=== PATIENT | female | born 1940 | race Caucasian/White ===

== ENCOUNTER 2018-08-16 05:15 | Observation (INO) | payer MEDICARE ==
[2018-08-16] VITALS (7 sets, daily range): BP systolic 98–128; BP diastolic 54–61
[~2018-08-16] VITALS: Ht 157.5 cm; Wt 52.2 kg
[~2018-08-16 05:15] MED LIST: ACETAMINOPHEN325 M1 PO; AMLODIPINE BESYL5 MG PO; AMOXICILLIN250 MG PO; ASA325 PO; ASCORBIC ACID500 MG PO; CELEBREX100 MG PO; CINNAMON500 MG PO; CLARITIN PO; DIOVAN40 MG PO; EVISTA60 MG PO; GABAPENTIN300 MG PO; GLUCOSAMINE &1 EACH PO; KRILL OIL PO; KRILL OIL500 MG PO; LEXAPRO10 MG PO; LISINOPRIL10 MG PO; METFORMIN HCL1000 MG PO; MONTELUKAST SOD10 MG PO; MULTI-VITAMIN1 EACH PO; RANITIDINE HCL150 MG PO; ROBITUSSIN PO; TAMIFLU PO; TYLENOL PO; ULTRAM 50MG50 MG PO; VALSARTAN PO; VITAMIN C WITH ZINC PO; VITAMIN D35000 UNIT PO; VITAMIN E400 UNI4 PO; Z.0.CELEBREX200 MG PO; Z.0.EVISTA60 MG PO; Z.0.VITAMIN C1000 MG PO; Z.1.METFORMIN HCL100 PO; [UNRECOGNIZED DRUG - OTHER] PO
[2018-08-16] MEDS ORDERED: DEXAMETHASONE SOD PHOS 10 MG/1 ML VIAL ONE (05:58)
[2018-08-16] MEDS ORDERED: CELECOXIB 200 MG CAP ONE (05:58)
[2018-08-16] MEDS ORDERED: GABAPENTIN 300 MG CAP ONE (05:58)
[2018-08-16] MEDS ORDERED: TRANEXAMIC ACID 1,000 MG/10 ML ML ONE (06:43)
[2018-08-16] MEDS ORDERED: BACITRACIN 50,000 UNIT VIAL ONE (06:43)
[2018-08-16] MEDS ORDERED: ROPIVACAINE 246.25 MG, EPINEPHRINE HCL 1:1000 0.5 MG, CLONIDINE HCL 0.08 MG, KETOROLAC ... INJ ONE ×5 (07:30)
[2018-08-16] MEDS ORDERED: CEFAZOLIN SOD 2 GM/D5W 50ML 50 ML IV ONE (07:31)
[2018-08-16] MEDS ORDERED: PROMETHAZINE HCL (IM) 25 MG/ML VIAL IM PRN (09:00)
[2018-08-16] MEDS ORDERED: ACETAMINOPHEN 650 MG SUPP PR PRN (09:00)
[2018-08-16] MEDS ORDERED: ONDANSETRON HCL INJ 2 MG/ML VIAL IV PRN (09:00)
[2018-08-16] MEDS ORDERED: DIPHENHYDRAMINE HCL INJ 50 MG/ML VIAL IM/IV PRN (09:00)
[2018-08-16] MEDS ORDERED: KETOROLAC TROMETHAMINE 30 MG/ML VIAL IV PRN (09:00)
[2018-08-16] MEDS ORDERED: HYDROCODONE/APAP 7.5MG-325MG 1 EA TAB PO PRN (09:00)
[2018-08-16] MEDS ORDERED: DOCUSATE SODIUM 100 MG CAP PO PRN (09:00)
[2018-08-16] MEDS ORDERED: HYDROCODONE/APAP 5MG-325MG TAB PO PRN (09:00)
[2018-08-16] MEDS ORDERED: CELECOXIB 100 MG CAP PO SCH (09:00)
[2018-08-16] MEDS ORDERED: FENTANYL CITRATE/PF 100MCG/2 ML INJ ONE ×2 (09:55→18:03)
--- NOTE | 2018-08-16 10:43 | Diagnostic Imaging Report ---
PROCEDURE: X-RAY RIGHT KNEE, ONE OR TWO VIEWS COMPARISON: None. INDICATIONS:POST OP RIGHT KNEE SX FINDINGS: See conclusion. CONCLUSION: Status post total right knee replacement with surrounding soft tissue swelling, air and colette consistent with recent surgery. No acute fractures. Duong Nichols D.O. Dictated by: Duong Nichols D.O. on 08/16/2018 at 10:51 Electronically approved by: Duong Nichols D.O. on 08/16/2018 at 10:51
[2018-08-16] MEDS: ACETAMINOPHEN 1000 MG/100 ML IV SCH ×2 (12:09→18:33)
[2018-08-16] MEDS ORDERED: CEFAZOLIN SOD 1 GM/D5W 50ML 50 ML IV SCH (14:00)
[2018-08-16] MEDS: CEFAZOLIN SOD 1 GM VIAL IV SCH ×2 (14:02→21:24)
--- NOTE | 2018-08-16 14:59 | Operative Report ---
DATE OF PROCEDURE: August 16, 2018 PEWTER FINISHER: Jason Carr PA-C The patient was brought to the operating room for induction of anesthesia. Throughout this case, my PA's assistance was necessary for retraction of soft tissue and positioning of the extremity. This allows for efficient and technically successful execution of the operation and is considered medically necessary. PREOPERATIVE DIAGNOSIS: Osteoarthritis, right knee. POSTOPERATIVE DIAGNOSIS: Osteoarthritis, right knee. PROCEDURE: Right total knee arthroplasty. INDICATIONS: The patient is an active 77-year-old woman who has end-stage arthritis of her right knee. She has failed conservative management and would like to proceed with right total knee replacement. The risks and benefits of the procedure have been discussed in detail. She states she understands and wishes to proceed. DESCRIPTION OF PROCEDURE: The patient was brought to the operating room and given a general anesthetic. She received a regional block, prophylactic antibiotics, and tranexamic acid in the holding area. Her right lower extremity was prepped and draped in a sterile manner. A preoperative time-out was performed. The extremity was exsanguinated and a proximal tourniquet was inflated to 300 mmHg. An anterior approach with a medial parapatellar arthrotomy was performed. Clear synovial fluid was removed from the joint. Soft tissue releases were performed to bring the knee up into flexion with the patella everted. She had diminish quadriceps definition and her tissue was quite thin. 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 Retractors were placed. An extramedullary cutting guide was used to resect the proximal tibia. The cut was referenced off the lateral compartment. A [employer] Person[employer] system was used throughout the case. The tibial baseplate was noted to be a size D. The central fin punch was impacted and attention was directed towards the distal femur. An intramedullary cutting guide was used to resect the distal femur in 5 degrees of valgus and external rotation referencing off of a combination of landmarks including [place] line, the epicondylar axis, and the posterior condyles. The femoral component was noted to be a size #5. The anterior and posterior cuts were made. Trial reductions were performed. A 10-mm ultra-congruent tibial insert provided appropriate soft tissue balancing in full extension and 90 degrees of flexion. The patella was resurfaced with a 29 mm x 8 mm patellar button. The thickness was checked before and after and was right around 19 mm. Patellar tracking was noted to be concentric. The trial implants were then all removed. A 100 mL premixed pericapsular CLAU injection was placed into the surrounding soft tissue. The wound was thoroughly irrigated with a shower-tip pulsatile lavage. The components were cemented into place using a single mix of [place] cement preloaded with antibiotics. Care was taken to remove extravasated cement. The wound was further irrigated with a pulsatile lavage until the cement completely cured. The arthrotomy was then closed with interrupted #1 Ethibond. The knee was put through flexion and extension to ensure a secure closure. The skin was closed with subcuticular Vicryl and colette. The skin was very thin. A sterile Aquacel bandage was applied. The patient was extubated and transported to the recovery room in stable condition. Blood loss was minimal. All needle and sponge counts were correct. Job#: [id number] VAS
[2018-08-16] MEDS: ASPIRIN 325 MG TAB PO SCH (17:20)
[2018-08-16] MEDS: CELECOXIB 200 MG CAP PO SCH (17:20)
[2018-08-16] MEDS ORDERED: ACETAMINOPHEN 1000 MG/100 ML IV ONE (17:34)
[2018-08-16] MEDS ORDERED: KETOROLAC TROMETHAMINE 30 MG/ML VIAL ONE (17:34)
[2018-08-16] MEDS ORDERED: ONDANSETRON HCL INJ 2 MG/ML VIAL ONE (17:34)
[2018-08-16] MEDS ORDERED: PROPOFOL IV EMULSION 10 MG/ML 20 ML VIAL ONE (17:34)
[2018-08-16] MEDS ORDERED: LIDOCAINE HCL 2% LOCAL INJ 5 ML SDV VIAL INJ ONE (17:34)
[2018-08-16] MEDS ORDERED: SEVOFLURANE INHAL SOLN 250 ML PEN BTL ONE (17:34)
[2018-08-16] MEDS ORDERED: EPHEDRINE SULFATE INJ 50 MG/10 ML SYR ONE (17:34)
[2018-08-16] MEDS ORDERED: ROPIVACAINE 0.5% 5 MG/ML 30 ML SDV ONE (17:54)
[2018-08-16] MEDS ORDERED: LIDOCAINE 2% /EPINEPHRINE 20 ML SDV INJ ONE (17:54)
[2018-08-16] MEDS ORDERED: MORPHINE SULFATE INJ 10 MG/ML ONE (18:03)
[2018-08-16] MEDS ORDERED: MIDAZOLAM HCL 2 MG/2 ML VIAL ONE (18:03)
[2018-08-16] MEDS ORDERED: LORATADINE 10 MG TAB PO PRN (19:00)
[2018-08-16] MEDS ORDERED: ZOLPIDEM TARTRATE 5 MG TAB PO PRN (21:00)
[2018-08-16] MEDS ORDERED: AMLODIPINE BESYLATE 5 MG TAB PO SCH (21:00)
[2018-08-16] MEDS ORDERED: GABAPENTIN 300 MG CAP PO SCH (21:00)
[2018-08-17] VITALS: BP 100/53
[2018-08-17] MEDS: ACETAMINOPHEN 1000 MG/100 ML IV SCH ×2 (00:26→05:46)
[2018-08-17 04:00] VITALS: BP 94/50
[2018-08-17] MEDS: SODIUM CHLORIDE 0.9% 1000ML 1,000 ML IV SCH ×2 (04:55→14:55)
[2018-08-17] MEDS: CEFAZOLIN SOD 1 GM VIAL IV SCH (05:41)
[2018-08-17 06:11] LABS: HEMATOCRIT 26.5 % (34.2-44.1)
--- NOTE | 2018-08-17 07:18 | Consultation ---
DATE OF CONSULTATION: Patient is admitted for osteoarthritis of the right knee, history of left hip of avascular necrosis. HISTORY: This is a 77-year-old female, presents with right knee pain and she fell about 2 years ago. Difficulty walking, increased pain on ambulation and also, increased swelling on ambulation. I was consulted for postop management for diabetes. PAST MEDICAL HISTORY: History of diabetes . MEDICATIONS 1. Amlodipine for hypertension. 2. Celebrex for osteoarthritis. 3. She also has history of depression, which she takes citalopram for. 4. She also takes gabapentin 300 mg 3 times a day. 5. Metformin for diabetes. 6. Raloxifene for osteoporosis. 7. Patient also take Tylenol. 8. Vitamin C. 9. Krill oil [id number]. SURGICAL HISTORY: Carpal tunnel, bilateral. Hysterectomy. Open reduction and internal fixation of left ankle, and also left BKA, and tonsillectomy. SOCIAL HISTORY: No EtOH abuse, no IV drug abuse, and no history of smoking. The patient's x-ray prior to admission shows osteoarthritis of bilateral knees. Patient admitted for total knee replacement of the knee. Patient currently is doing very well postoperatively. Will continue manage the patient, start back on her home medications and DVT prophylaxis has been instituted already. Insulin sliding scale has also been started. Further recommendation per clinical course. Will continue monitor the patient and also, continue monitoring her electrolytes and fluids on a daily basis until discharge. Thank you for the consultation. Job#: [id number]
[2018-08-17] MEDS ORDERED: ESCITALOPRAM OXALATE 10 MG TAB PO SCH (09:00)
[2018-08-17] MEDS ORDERED: MONTELUKAST SODIUM 10 MG TAB PO SCH (09:00)
[2018-08-17] MEDS ORDERED: RALOXIFENE HCL 60 MG TAB PO SCH (09:00)
[2018-08-17] MEDS ORDERED: ACETAMINOPHEN 1000 MG/100 ML IV PRN (09:00)
[2018-08-17] MEDS: ASPIRIN 325 MG TAB PO SCH (09:22)
[2018-08-17] MEDS: CELECOXIB 200 MG CAP PO SCH (09:22)
[2018-08-17] MEDS ORDERED: ACETAMINOPHEN 325 MG TAB PO PRN (09:30)
[2018-08-17 10:07] VITALS: BP 107/52
[2018-08-17] MEDS ORDERED: ASPIRIN325 MG PO (11:59)
[2018-08-17 14:35] VITALS: BP 132/68
== END 2018-08-17 15:05 | disposition home health service (06) ==
LOC: OR 05:15 → PACU V 08:57 → MED/SURG 10:16
PROVIDERS: ADMIT Specialist; ATTEND Specialist
DX: M17.11 Unilateral primary osteoarthritis, right knee (principal); E11.9 Type 2 diabetes mellitus without complications; F32.9 Major depressive disorder, single episode, unspecified; Z79.84 Long term (current) use of oral hypoglycemic drugs; M81.0 Age-related osteoporosis without current pathological fracture; Z89.512 Acquired absence of left leg below knee; I10 Essential (primary) hypertension; Z88.8 Allergy status to other drugs, medicaments and biological substances
CPT/HCPCS: 27447; 36415; 73560; 85014; 85018; 86850; 86900; 86920; 97116 ×2; 97161; 97530; G0378 ×2; G8978; G8979; J0171; J0690 ×2; J1100; J1885 ×2; J2001 ×2; J2250; J2270; J2405; J2795; J7030